=== PATIENT | female | born 1940 ===

== ENCOUNTER 2017-02-17 09:50 | Emergency (ER) | payer MEDICARE, MEDICAID ==
[2017-02-17 09:57] VITALS: BMI 24.2
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
[2017-02-17 11:16] LABS: BASO % 0.6 % (0.0-2.0); EOS % 0.4 % (0.0-4.0); HEMATOCRIT 33.6 % (34.0-47.0); LYMPH # 0.9 K/uL (1.0-4.3); LYMPH % 17.4 % (20.0-40.0); MEAN CELL VOLUME 87.1 fL (81.0-99.0); MEAN CORPUSCULAR HEMOGLOBIN 29.4 pg (27.0-31.0); MEAN CORPUSCULAR HGB CONC 33.7 g/dL (33.0-37.0); MEAN PLATELET VOLUME 8.6 fL (7.2-11.7); MONO # 0.5 K/uL (0.0-0.8); MONO % 9.3 % (0.0-10.0); RED CELL DISTRIBUTION WIDTH 13.5 % (11.5-14.5); WHITE BLOOD COUNT 5.3 K/uL (4.8-10.8)
[2017-02-17 11:31] LABS: ALB/GLOB RATIO 1.2 (1.0-2.1); ALCOHOL SERUM < 10 mg/dl (0-10); ALKALINE PHOSPHATASE 100 U/L (38-126); ALT/SGPT 30 U/L (9-52); AST/SGOT 35 U/L (14-36); BLOOD UREA NITROGEN 16 mg/dL (7-17); CALCIUM 9.2 mg/dl (8.6-10.4); CARBON DIOXIDE 27 mmol/L (22-30); CHLORIDE 97 mmol/L (98-107); GFR AFRICAN-AMERICAN > 60; GLUCOSE,RANDOM 85 mg/dL (65-105); POTASSIUM 4.1 mmol/L (3.6-5.2); SODIUM 138 mmol/L (132-148); TOTAL PROTEIN 7.1 g/dL (6.3-8.3)
[2017-02-17 12:05] LABS: RBC URINE < 1 /hpf (0-3); URINE BILIRUBIN NEGATIVE (NEGATIVE); URINE BLOOD NEGATIVE (NEGATIVE); URINE COLOR Yellow (YELLOW); URINE GLUCOSE (UA) NORMAL (Normal); URINE KETONE NEGATIVE (NEGATIVE); URINE LEUKOCYTE ESTERASE 2+ Leu/uL (Negative); URINE PROTEIN NEGATIVE (NEGATIVE); URINE UROBILINOGEN NORMAL mg/dL (0.2-1.0); WBC URINE 8 /hpf (0-5)
[2017-02-17 15:14] VITALS: O2SAT 98
[2017-02-17 15:45] VITALS: BP 130/80; PULSE 78; RESP 20; TEMP 98
== END 2017-02-17 15:44 | disposition home or self-care (01) ==
LOC: C.ER 09:50
DX: F41.9 Anxiety disorder, unspecified (principal)
CPT/HCPCS: 80053; 81001; 85025; 99285; G0480

== ENCOUNTER 2017-03-31 14:09 | Emergency (ER) | payer MEDICARE, MEDICAID ==
[2017-03-31 14:09] VITALS: BMI 24.2
[2017-03-31 14:36] VITALS: BP 172/90; PULSE 74; RESP 18; TEMP 97.9; O2SAT 95
[2017-03-31] MEDS ORDERED: Lidocaine 2% Inj (20ml) INFIL ONE (15:30)
--- NOTE | 2017-03-31 15:59 | C.PDOC ---
History Of Present Illness 76 y/o female, with PMHx that includes dementia, c/o pain to the right thumbnail for 1 month. Patient reports she thinks there may be foreign body under the nail. Denies trauma, fever, new weakness, new numbness, or other associated symptoms. Time Seen by Provider: 03/31/17 14:22 Chief Complaint (Nursing): Finger,Hand,&Wrist History Per: Patient History/Exam Limitations: no limitations Onset/Duration Of Symptoms: Days Current Symptoms Are (Timing): Still Present Quality: "Pain" Recent travel outside of the [place]: No Past Medical History Reviewed: Historical Data, Nursing Documentation, Vital Signs Vital Signs: Last Vital Signs Temp 97.9 F 03/31/17 14:28 Pulse 74 03/31/17 14:28 Resp 18 03/31/17 14:28 BP 172/90 H 03/31/17 14:28 Pulse Ox 95 03/31/17 18:13 - Medical History PMH: Alzheimer's Disease, Anxiety, Depression, Gastritis, HTN, Osteoporosis - [facility] Procedures OTHER GROUP THERAPY (03/10/13) Family History: States: Unknown Family Hx - Social History Hx Tobacco Use: No Hx Alcohol Use: No Hx Substance Use: No - Immunization History Hx Tetanus Toxoid Vaccination: No Hx Influenza Vaccination: No Hx Pneumococcal Vaccination: No Review Of Systems Except As Marked, All Systems Reviewed And Found Negative. Constitutional: Negative for: Fever, Chills Musculoskeletal: Positive for: Hand Pain (right thumb nailbed) Skin: Negative for: Rash Neurological: Negative for: Weakness, Numbness Physical Exam - Physical Exam Appears: Non-toxic, No Acute Distress Skin: Normal Color, Warm, Dry, No Rash Head: Atraumatic, Normacephalic Eye(s): bilateral: Normal Inspection Oral Mucosa: Moist Extremity: Normal ROM, Capillary Refill (< 2 sec.), No Deformity, Other ( yellowish discoloration lateral right thumbnail, +tenderness, no swelling. No foreign body seen) Extremity: Bilateral: Normal Color And Temperature Pulses: Left Radial: Normal, Right Radial: Normal Neurological/Psych: Oriented x3, Normal Motor, Normal Sensation Gait: Steady ED Course And Treatment O2 Sat by Pulse Oximetry: 95 (RA) Pulse Ox Interpretation: Normal - Other Rad Right Hand XR X-Ray: Viewed By Me, Read By Radiologist Interpretation: (-) FB, (-) fracture Progress Note: X-ray ordered and reviewed: no foreign body seen. Medical Decision Making Medical Decision Making: Patient was instructed that the painful area on the nail is a fungus and not a foreign body. Disposition - Disposition Referrals: [facility] [Outside] Disposition: HOME/ ROUTINE Disposition Time: 15:55 Condition: GOOD Additional Instructions: Follow up with the Airplane Cabin Attendant Prescriptions: Undecylenic Acid/Zn Undecyl [Fungi-Nail Toe-Foot Ointment] 20 gm TP BID #2 oint...g. Instructions: Antifungals (On the skin) Forms: [employer] (Azeri) Print Language: POLISH - Clinical Impression Clinical Impression: Fungal nail infection - PA / TRAFFIC RATE ANALYST / Resident Statement MD/DO has reviewed & agrees with the documentation as recorded. - Scribe Statement The provider has reviewed the documentation as recorded by the Scribe SM All medical record entries made by the Scribe were at my direction and personally dictated by me. I have reviewed the chart and agree that the record accurately reflects my personal performance of the history, physical exam, medical decision making, and the department course for this patient. I have also personally directed, reviewed, and agree with the discharge instructions and disposition.
--- NOTE | 2017-03-31 16:20 | RAD ---
PROCEDURE: Right Thumb radiographs. HISTORY: nail foreign body COMPARISON: None. TECHNIQUE: AP radiograph of the right hand, as well as spot oblique and lateral images of thumb were obtained. FINDINGS: RIGHT THUMB: Normal right thumb, without fracture or focal lesion. No radiopaque foreign body identified. Remainder of the right hand (as seen on the AP view) grossly unremarkable. JOINTS: Normal. SOFT TISSUES: Normal. OTHER FINDINGS: None. IMPRESSION: Normal right thumb radiographs. No radiopaque foreign body identified.
== END 2017-03-31 17:12 | disposition home or self-care (01) ==
LOC: C.ER 14:09
DX: B35.1 Tinea unguium (principal)

== ENCOUNTER 2017-12-03 08:36 | Day surgery (SDC) | payer MEDICARE, MEDICAID ==
[2017-12-03 09:14] VITALS: BMI 23.4
[2017-12-03 10:00] VITALS: O2SAT 100
--- NOTE | 2017-12-03 10:45 | CP.SDSHP ---
Same Day Surgery H & P - History Proposed Procedure: EGD Pre-Op Diagnosis: weight loss - Previous Medical/Surgical History Cardiac: Hypertension Comments: dementia - Allergies Allergies: Allergies flu vaccine Allergy (Uncoded 03/31/17 14:17) - Physical Exam General Appearance: NAD Vital Signs: Vital Signs 12/03/17 09:12 Temperature 98.2 F Pulse Rate 72 Respiratory 19 Rate Blood Pressure 134/77 O2 Sat by Pulse 100 Oximetry Mental Status: Confused Neuro: WNL Heart: WNL Lungs: WNL GI: WNL - {Optional Preform as Required} Abdomen: WNL - Impression Pt. Evaluated Today:Candidate for Anesthesia & Procedure: Yes - Date & Time Date: 12/03/17 Time: 10:44 Short Stay Discharge - Short Stay Discharge Admitting Diagnosis/Reason for Visit: ABNORMAL WEIGHT LOSS Disposition: HOME/ ROUTINE
[2017-12-03] MEDS ORDERED: Propofol 10 mg/ml Inj (20 ML) ONE (10:46)
[2017-12-03] MEDS ORDERED: Lactated Ringer's 500 ML IV ONE ×2 (10:51)
[2017-12-03] MEDS ORDERED: Lidocaine Hydrochloride 5 ML INJ ONE (11:07)
[2017-12-03 14:13] VITALS: TEMP 98.4
[2017-12-03 14:15] VITALS: RESP 17
[2017-12-03 14:20] VITALS: BP 138/68; PULSE 61
== END 2017-12-03 12:00 | disposition home or self-care (01) ==
LOC: C.ENDO 08:36
PROVIDERS: ATTEND Internal Medicine Gastroenterology
DX: R63.4 Abnormal weight loss (principal); I10 Essential (primary) hypertension; F03.90 Unspecified dementia, unspecified severity, without behavioral disturbance, psychotic disturbance, mood disturbance, and anxiety; K22.5 Diverticulum of esophagus, acquired
CPT/HCPCS: 43239; 88305; J2704; J7120